=== PATIENT | male | born 1975 | race Caucasian/White ===

== ENCOUNTER 2018-05-29 16:48 | Observation (INO) ==
[2018-05-29] MEDS ORDERED: Ampicillin/Sulbactam Inj 3 GM in Sodium Chloride 0.9% Inj 100 ML IV.SIG ONE (17:00)
[2018-05-29] MEDS ORDERED: Morphine Inj 4 MG/ML Vial IV.PUSH ONE (17:00)
[2018-05-29] MEDS ORDERED: Sod Chloride 0.9% Inj 1,000 ML IV.SIG ONE (17:00)
[2018-05-29] MEDS ORDERED: Ketorolac Inj 30 MG/ML (IVP) Vial IV.PUSH ONE (17:00)
--- NOTE | 2018-05-29 17:07 | ED ---
HPI General Chief complaint: Skin/Abscess/Foreign Body Stated complaint: Infection around Rectum Time Seen by Provider: 05/29/18 16:53 Source: patient Mode of arrival: ambulatory Limitations: no limitations History of Present Illness HPI narrative: The patient is a 43-year-old male who presents emergency department for a perirectal abscess that is draining. The patient's symptoms started approximately 4 days ago. The patient complained of pain in the right perirectal area was seen in the emergency department yesterday. The patient states he was diagnosed with a right perirectal abscess and was placed on antibiotics, Augmentin and Bactrim, was advised to follow-up with a colorectal surgeon. The patient called his primary physician earlier today to inquire about a referral, however, he has was unable to see his surgeon. The patient states the symptoms are progressing, he has increasing pain, now has drainage from the abscess. The patient also notes subjective fevers with intermittent chills. The patient does have a history of IBS but denies any history of Crohn's disease or ulcerative colitis. The patient has had a colonoscopy in the last year, had several polyps which were removed, noncancerous. The patient denies currently taking any immunosuppressive medications. He denies any history of diabetes. Symptoms are moderate. The patient is already taking Augmentin, Bactrim, and hydrocodone for pain. MD complaint: abscess/boil Onset (ago): day(s) Location: buttocks Severity: moderate Severity scale (1-10): 7 Quality: sharp and constant Pain Consistency: constant Relieving factors: none Exacerbating factors: none Context: other Associated symptoms: fever Treatments prior to arrival: antibiotic Related Data Home Medications Medication Instructions Recorded Confirmed lisinopril 20 mg PO DAILY 05/28/18 05/29/18 ranitidine HCl [Zantac] 150 mg PO BID 05/28/18 05/29/18 Previous Rx's Medication Instructions Recorded amoxicillin-pot clavulanate 1 tab PO BID #20 tab 05/28/18 [Augmentin] hydrocodone-acetaminophen [Calumet] 1 tab PO Q6H PRN #12 tab 05/28/18 sulfamethoxazole-trimethoprim 1 tab PO BID 7 Days #14 tab 05/28/18 [Bactrim DS] Allergies Allergy/AdvReac Type Severity Reaction Status Date / Time No Known Allergies Allergy Verified 05/29/18 17:04 Review of Systems Except as stated in HPI: all other systems reviewed are negative [facility] Medical History Medical History GERD (gastroesophageal reflux disease) (Acute) Hypertension (Acute) Surgical History Surgical History History of ankle joint replacement (Acute) Social History Social History Substance History: No History of Abuse Second Hand Smoke Exposure: Yes Smoking Status: Current every day smoker Tobacco Type: Cigarettes How Often Do You Have a Drink Containing Alcohol: 2 to 4 times a month Recent Travel in [facility] within the Last 8 Weeks: No Recent Out of Country Travel within the Last 8 Weeks: No Exam Narrative Exam Narrative: GENERAL: Awake, alert, pleasant 43-year-old male who appears his stated age and is in no acute respiratory distress. SKIN: Focused skin assessment warm/dry. HEAD: Atraumatic. Normocephalic. EYES: No injection or drainage. NECK: Trachea midline. No JVD. CARDIOVASCULAR: Regular rate and rhythm. No murmur appreciated. RESPIRATORY: No accessory muscle use. Clear to auscultation. Breath sounds equal bilaterally. GASTROINTESTINAL: Abdomen soft, non-tender, nondistended. Rectal: Patient has a draining abscess with mild induration and tenderness at the 9 o'clock position. Rectal exam was performed, no obvious palpable abscess on digital rectal exam. MUSCULOSKELETAL: No obvious deformities. No clubbing. No cyanosis. No edema. NEUROLOGICAL: Awake and alert. No obvious cranial nerve deficits. Motor grossly within normal limits. Normal speech. PSYCHIATRIC: Appropriate mood and affect; insight and judgment normal. Course Reevaluation(s) Reevaluation #1: The on-call general surgeon, as there was no colorectal surgeon , was paged at 7:18 PM. Time: 19:18 Initial Documented Vital Signs Temperature 99.4 F 05/29/18 17:01 Pulse Rate 102 H 05/29/18 17:01 Respiratory Rate 18 05/29/18 17:01 Blood Pressure 154/83 H 05/29/18 17:01 Pulse Oximetry 97 05/29/18 17:01 Last Documented Vital Signs Temperature 99.4 F 05/29/18 17:01 Pulse Rate 102 H 05/29/18 17:01 Respiratory Rate 18 05/29/18 17:01 Blood Pressure 154/83 H 05/29/18 17:01 Pulse Oximetry 98 05/29/18 17:07 Medical Decision Making MDM Narrative Medical decision making narrative: IV was established, labs are drawn and sent, and the patient was placed on cardiac telemetry monitoring and continuous pulse oximetry monitoring. The patient was administer morphine, Toradol, Zofran, and IV fluids. CBC, lactic acid, blood culture were sent to lab. CT of the pelvis with IV contrast was ordered to evaluate the depth and extent of the abscess. CBC reveals a white count of 14.9. Creatinine is mildly elevated at 1.40. Lactic acid is normal. CT of the pelvis with IV contrast reveals a perirectal abscess that measured 2.2 cm with surrounding cellulitis. The patient was already on Augmentin and Bactrim, has been placed on Unasyn. The patient will be admitted to the medical service. A call was placed to the on-call general surgeon as there was no colorectal surgeon as he may benefit from evaluation tomorrow if symptoms do not improve. I discussed the patient with Dr. Mulligan, the patient will be a 23 hour observation to the medical service. If the patient does not need any more debridement or opening, the patient may just need IV antibiotic's overnight and discharged tomorrow. I discussed this with the patient and his girlfriend at bedside who are comfortable with this plan of care. Differential Diagnosis Differential Diagnosis: Differential diagnosis includes perirectal abscess, fistula, ischial rectal abscess, sepsis, cellulitis, bacteremia, septicemia. Lab Data Lab results reviewed: Yes I reviewed the patient's lab results. Lab results narrative: White count is elevated at 14.9, lactic acid is normal. Creatinine is mildly elevated at 1.40. Result diagrams: 05/29/18 17:20 05/29/18 17:20 Lab Results 05/29/18 05/29/18 05/29/18 Range/Units 17:20 17:20 17:20 CBC w Diff Auto diff final WBC 14.9 H (4.0-11.0) th/mm3 RBC 4.24 L (4.50-5.90) mil/mm3 Hgb 14.3 (13.0-17.0) gm/dL Hct 41.2 (39.0-51.0) % MCV 97.1 (80.0-100.0) fL MCH 33.7 (27.0-34.0) pg MCHC 34.7 (32.0-36.0) % RDW 12.2 (11.6-17.2) % Plt Count 179 (150-450) th/mm3 MPV 8.4 (7.0-11.0) fL Neut % (Auto) 85.0 H (16.0-70.0) % Lymph % (Auto) 6.9 L (9.0-44.0) % [place] % (Auto) 7.3 (0.0-8.0) % Eos % (Auto) 0.8 (0.0-4.0) % Baso % (Auto) 0.0 (0.0-2.0) % Neut # (Auto) 12.7 H (1.8-7.7) th/mm3 Lymph # (Auto) 1.0 (1.0-4.8) th/mm3 [place] # (Auto) 1.1 H (0.0-0.9) th/mm3 Eos # (Auto) 0.1 (0.0-0.4) th/mm3 Baso # (Auto) 0.0 (0.0-0.2) th/mm3 WBC Differential . Differential Comment . Sodium 136 (136-145) meq/L Potassium 3.3 L (3.5-5.1) meq/L Chloride 103 (98-107) meq/L Carbon Dioxide 27.7 (21.0-32.0) meq/L Anion Gap 5 (5-15) meq/L BUN 12 (7-18) mg/dL Creatinine 1.40 H (0.60-1.30) mg/dL Estimated GFR 56 L (>89) mL/min Random Glucose 86 (74-106) mg/dL Lactic Acid 0.8 (0.4-2.0) mmol/L Calcium 8.9 (8.5-10.1) mg/dL Total Bilirubin 0.7 (0.2-1.0) mg/dL AST 30 (15-37) U/L ALT 65 (12-78) U/L Alkaline Phosphatase 97 (45-117) U/L Total Protein 7.3 (6.4-8.2) g/dL Albumin 3.1 L (3.4-5.0) g/dL Lipase 98 (73-393) U/L Imaging Data Radiologist's impression: Pelvis CT 05/29/18 17:00 CONCLUSION: 1. Cellulitis in the perirectal and perianal region with a suspected small 2.2 cm abscess on the right side. Discharge Plan Discharge Disposition Patient Disposition: 30 Still Patient Discharge Condition Condition: Stable Discharge Details Diagnosis: Miriam-rectal abscess Physicians Team ED Provider: Mitul Diehl Primary Care Provider: Primary Care Hanane Lane Rxs /Orders / Referrals /Forms Prescriptions: No Action lisinopril 20 mg Tablet 20 mg PO DAILY RF: 0 ranitidine HCl [Zantac] 150 mg Tablet 150 mg PO BID RF: 0 hydrocodone-acetaminophen [Calumet] 5-325 mg tablet 1 tab PO Q6H PRN (Reason: pain) Qty: 12 RF: 0 sulfamethoxazole-trimethoprim [Bactrim DS] 800-160 mg tablet 1 tab PO BID 7 Days Qty: 14 RF: 0 amoxicillin-pot clavulanate [Augmentin] 875-125 mg tablet 1 tab PO BID Qty: 20 RF: 0 Status ED Status: Pending Admission
[2018-05-29 17:31] LABS: Eos # (Auto) 0.1 th/mm3 (0.0-0.4); Eos % (Auto) 0.8 % (0.0-4.0); Hematocrit 41.2 % (39.0-51.0); Hemoglobin 14.3 gm/dL (13.0-17.0); Lymph % (Auto) 6.9 % (9.0-44.0); Mean Corpuscular HGB Conc 34.7 % (32.0-36.0); Mean Corpuscular Hemoglobin 33.7 pg (27.0-34.0); Mean Corpuscular Volume 97.1 fL (80.0-100.0); Mean Platelet Volume 8.4 fL (7.0-11.0); Mono # (Auto) 1.1 th/mm3 (0.0-0.9); Mono % (Auto) 7.3 % (0.0-8.0); Neut # (Auto) 12.7 th/mm3 (1.8-7.7); Platelet Count 179 th/mm3 (150-450); Red Blood Count 4.24 mil/mm3 (4.50-5.90); Red Cell Distribution Width 12.2 % (11.6-17.2); White Blood Count 14.9 th/mm3 (4.0-11.0)
[2018-05-29 17:37] LABS: Chloride 103 meq/L (98-107); Potassium 3.3 meq/L (3.5-5.1); Sodium 136 meq/L (136-145)
[2018-05-29 17:40] LABS: Calcium 8.9 mg/dL (8.5-10.1)
[2018-05-29 17:41] LABS: Albumin 3.1 g/dL (3.4-5.0); Anion Gap 5 meq/L (5-15); Blood Urea Nitrogen 12 mg/dL (7-18); Carbon Dioxide 27.7 meq/L (21.0-32.0); Glucose,Random 86 mg/dL (74-106); Lipase 98 U/L (73-393)
[2018-05-29 17:44] LABS: Alanine Aminotransferase 65 U/L (12-78); Aspartate Aminotransferase 30 U/L (15-37); Glomerular Filtration Rate 56 mL/min (>89)
[2018-05-29 17:45] LABS: Total Protein 7.3 g/dL (6.4-8.2)
[2018-05-29 17:47] LABS: Alkaline Phosphatase 97 U/L (45-117)
--- NOTE | 2018-05-29 19:08 | CT ---
EXAM DATE: 05/29/2018 6:33 PM EDT AGE/SEX: 43 years / Male INDICATIONS: Perirectal abscess. Evaluate for abscess extension, superficial vs deep. CLINICAL DATA: This is the patient's initial encounter. Patient reports that signs and symptoms have been present for 4 - 6 days and indicates a pain score of 10/10. MEDICAL/SURGICAL HISTORY: Gastroesophageal reflux disease. Hypertension. None. RADIATION DOSE: 16.51 CTDI (mGy) COMPARISON: No prior exams available for comparison. TECHNIQUE: Multiple contiguous helical axial images were obtained through pelvis following bolus inf usion of 90 ml Omnipaque 350 (iohexol) nonionic water-soluble contrast as a single exam dose. Imag es were obtained using multiple row detector helical technique. . Using automated exposure control an d adjustment of the mA and/or kV according to patient size, radiation dose was kept as low as reasona gabby achievable to obtain optimal diagnostic quality images. DICOM format image data is available sade ctronically for review and comparison. FINDINGS: There is thickening of the soft tissues in the perirectal and perianal region with a suspected perire ctal abscess measuring up to about 2.2 cm in diameter. Within the pelvis there is no mass or fluid. No adenopathy. No acute bony abnormalities. CONCLUSION: 1. Cellulitis in the perirectal and perianal region with a suspected small 2.2 cm abscess on the rig ht side. Electronically signed by: Des Andersen MD 05/29/2018 7:06 PM EDT
[2018-05-29] MEDS ORDERED: Acetaminophen 325 MG Tablet PO PRN (19:49)
[2018-05-29] MEDS ORDERED: Temazepam 15 MG Capsule PO PRN (19:49)
[2018-05-29] MEDS ORDERED: Bisacodyl 10 MG Supp RECTAL PRN (19:49)
[2018-05-29] MEDS ORDERED: Vancomycin Consult Pharmacy 1 EACH OTHER SCH (20:00)
[2018-05-29] MEDS: Sod Chloride 0.9% Inj 1,000 ML IV.CONT SCH (20:12)
[2018-05-29] MEDS ORDERED: Vancomycin Inj 1,300 MG in Sodium Chlor 0.9% Inj 500 ML IV.SIG SCH (21:00)
[2018-05-29] MEDS: Senna/Docusate Sodium 8.6/50 MG Tablet PO SCH (23:40)
[2018-05-29] MEDS: Ampicillin/Sulbactam Inj 3 GM in Sodium Chloride 0.9% Inj 100 ML IV.SIG SCH (23:41)
[2018-05-30] MEDS: Morphine Inj 4 MG/ML Vial IV.PUSH PRN ×2 (05:45→10:09)
[2018-05-30] MEDS: Ampicillin/Sulbactam Inj 3 GM in Sodium Chloride 0.9% Inj 100 ML IV.SIG SCH (05:46)
[2018-05-30] MEDS: Sod Chloride 0.9% Inj 1,000 ML IV.CONT SCH (05:48)
[2018-05-30] MEDS: Senna/Docusate Sodium 8.6/50 MG Tablet PO SCH (08:08)
[2018-05-30 08:11] LABS: Baso % (Auto) 0.2 % (0.0-2.0); Eos # (Auto) 0.2 th/mm3 (0.0-0.4); Eos % (Auto) 2.2 % (0.0-4.0); Hemoglobin 12.7 gm/dL (13.0-17.0); Lymph # (Auto) 1.2 th/mm3 (1.0-4.8); Lymph % (Auto) 13.4 % (9.0-44.0); Mean Corpuscular HGB Conc 35.3 % (32.0-36.0); Mean Corpuscular Hemoglobin 34.5 pg (27.0-34.0); Mean Corpuscular Volume 97.8 fL (80.0-100.0); Mean Platelet Volume 8.9 fL (7.0-11.0); Mono # (Auto) 0.8 th/mm3 (0.0-0.9); Mono % (Auto) 8.2 % (0.0-8.0); Platelet Count 169 th/mm3 (150-450); Red Blood Count 3.68 mil/mm3 (4.50-5.90); Red Cell Distribution Width 12.5 % (11.6-17.2); White Blood Count 9.2 th/mm3 (4.0-11.0)
[2018-05-30 08:20] LABS: Chloride 110 meq/L (98-107); Sodium 143 meq/L (136-145)
[2018-05-30 08:39] LABS: Alanine Aminotransferase 62 U/L (12-78); Albumin 2.4 g/dL (3.4-5.0); Alkaline Phosphatase 84 U/L (45-117); Anion Gap 5 meq/L (5-15); Aspartate Aminotransferase 41 U/L (15-37); Blood Urea Nitrogen 11 mg/dL (7-18); Calcium 7.8 mg/dL (8.5-10.1); Carbon Dioxide 27.9 meq/L (21.0-32.0); Glomerular Filtration Rate 74 mL/min (>89); Glucose,Random 98 mg/dL (74-106); Total Protein 5.9 g/dL (6.4-8.2)
--- NOTE | 2018-05-30 11:22 | P.CONGS ---
[facility] Gen Surgery Consult Note Consult date: 05/30/18 Narrative: Mr. Acuna is a 43 yo M who developed perirectal pain 6 days ago. He presented to the ED a few days ago and was place on PO antibiotics. He attempted to contact a surgeon but was unable to get in Friday on such short notice. He again presented to the ED yesterday as the pain persisted and he also began to have drainage from the area. WBC was noted to be 14,[address] pelvis showed a small fluid collection and inflammation. Review of Systems All other systems reviewed negative except as stated in [facility] - History History Provided By: Patient - Medical History Medical History: Medical History (Last Updated 05/28/18 @ 11:48 by Lindsey Ott RN) GERD (gastroesophageal reflux disease) Hypertension - Surgical History Surgical History: Surgical History (Last Updated 05/28/18 @ 11:48 by Lindsey Ott, FELIX) History of ankle joint replacement - Tobacco History Second Hand Smoke Exposure: Yes Tobacco Use In Past 30 Days: Yes Smoking Status: Current every day smoker Tobacco Type: Cigarettes - Alcohol History How Often Do You Have a Drink Containing Alcohol: 2 to 3 times a week - Substance Use History Substance History: No History of Abuse - Travel History Recent Travel in the [place] Within the Last 8 Weeks: No Recent Travel Out of the Country Within the Last 8 Weeks: No - Immunization History Tetanus Immunization: <5 Years Hx Influenza Vaccine This Season: No Medications and Allergies Active Medications: Active Medications Acetaminophen (Tylenol) 650 mg PO Q4H PRN PRN Reason: Temp > 100.4 Hydrocodone Bitart/Acetaminophen ([place] 5/325) 1 tab PO Q4H PRN PRN Reason: PAIN 3-5 Last Admin: 05/29/18 20:11 Dose: 1 tab Al Hydroxide/Mg Hydroxide (Milk Of Cecilia Liq) 30 ml PO Q12H PRN PRN Reason: Mild Constipation Bisacodyl (Dulcolax Supp) 10 mg RECTAL DAILY PRN PRN Reason: SEVERE CONSITIPATION Ampicillin Sodium/Sulbactam (Sodium 3 gm/ Sodium Chloride) 100 mls @ 200 mls/ hr IV.SIG Q6H [facility] Last Infusion: 05/30/18 06:32 Dose: Infused Sodium Chloride (Ns Inj) 1,000 mls @ 100 mls/hr IV.CONT .Q10H [facility] Last Admin: 05/30/18 05:48 Dose: 100 mls/hr Pharmacy Profile Note (Vancomycin Consult Pharmacy) 0 mls @ 0 mls/hr OTHER UNSCH [facility] Vancomycin HCl 1,300 mg/ (Sodium Chloride) 513 mls @ 250 mls/hr IV.SIG Q18H [facility] Last Infusion: 05/29/18 23:49 Dose: Infused Lactulose (Lactulose Liq) 30 ml PO DAILY PRN PRN Reason: SEVERE CONSITIPATION Miscellaneous Information ([facility] Ordered Lab Info) 0 each OTHER ONCE ONE Stop: 06/01/18 02:46 Morphine Sulfate (Morphine Inj) 2 mg IV.PUSH Q4H PRN PRN Reason: PAIN 6-10 Last Admin: 05/30/18 10:09 Dose: 2 mg Ondansetron HCl (Zofran Inj) 4 mg IV.PUSH Q6H PRN PRN Reason: NAUSEA OR VOMITING Senna/Docusate Sodium (Miriam-Colace) 1 tab PO BID [facility] Last Admin: 05/30/18 08:08 Dose: Not Given Sennosides (Senokot) 17.2 mg PO Q12H PRN PRN Reason: Moderate Constipation Sodium Chloride (Ns Flush) 2 ml IV.FLUSH PRN PRN PRN Reason: FLUSH AFTER USING IV ACCESS Temazepam (Restoril) 15 mg PO HS PRN PRN Reason: INSOMNIA Last Admin: 05/30/18 00:36 Dose: 15 mg Allergies Allergy/AdvReac Type Severity Reaction Status Date / Time No Known Allergies Allergy Verified 05/29/18 17:04 Home Medications Medication Instructions Recorded Confirmed Type lisinopril 20 mg PO DAILY 05/28/18 05/29/18 History ranitidine HCl [Zantac] 150 mg PO BID 05/28/18 05/29/18 History Exam Vital signs: Vital Signs 05/29/18 17:01 05/29/18 17:07 05/29/18 20:18 Temperature 99.4 F 98.8 F Pulse Rate 102 H 95 H Respiratory Rate 18 18 Blood Pressure 154/83 H 103/52 L Pulse Oximetry 97 98 05/29/18 21:56 05/30/18 00:00 05/30/18 07:29 Temperature 98.4 F 99.2 F Pulse Rate 89 93 H 89 Respiratory Rate 20 16 20 Blood Pressure 130/79 125/82 117/70 Pulse Oximetry 96 92 L 05/30/18 10:38 05/30/18 11:08 Temperature 98.7 F Pulse Rate 75 Respiratory Rate 17 20 Blood Pressure 130/74 Pulse Oximetry 97 Intake & Output 05/29/18 05/30/18 05/30/18 18:59 06:59 18:59 Intake Total 2716 / 2716 Balance 271 / 2716 Weight 86.2 kg 86.9 kg Intake: IV 2715 / 2716 NS Inj 1,000 ML @ 100 mls/hr IV 903 / 903 .CONT .Q10H [facility] Rx#:[id number] Unasyn Inj 3 GM In NS Inj 100 300 / 300 ML @ 200 mls/hr IV.SIG Q6H [facility] Rx#:[id number] NS Inj 1,000 ML @ Wide Open IV. 1000 / 1000 SIG BOLUS ONE Rx#:[id number] Vancomycin Inj 1,300 MG In NS 513 / 513 Inj 500 ML @ 250 mls/hr IV.SIG Q18H [facility] Rx#:[id number] Other: # Voids 3 Date of Last Bowel Movement 05/30/18 # Bowel Movements 1 Weight On Admission 86.9 kg Narrative: GENERAL: Awake and alert. No acute distress. Cooperative. HEAD: Normocephalic. Atraumatic. EYES: Pupils equal round and reactive to light bilaterally. No scleral icterus. ENT: Moist oral mucosa. NECK: Trachea midline. CHEST: Lungs clear to auscultation bilaterally with no wheezing or rhonchi. No respiratory distress. CARDIOVASCULAR: Regular rate and rhythm. Rectal: Right perianal area with 3x3 cm area induration and purulent drainage. No erythema. Moderately tender. EXTREMITIES: No cyanosis or edema. SKIN: Warm, dry, nonjaundiced. Results - Labs 05/30/18 07:12 05/30/18 07:12 Abnormal lab results 05/29/18 05/29/18 05/30/18 Range/Units 17:20 17:20 07:12 WBC 14.9 H (4.0-11.0) th/mm3 RBC 4.24 L 3.68 L (4.50-5.90) mil/mm3 Hgb 12.7 L (13.0-17.0) gm/dL Hct 36.0 L (39.0-51.0) % MCH 34.5 H (27.0-34.0) pg Neut % (Auto) 85.0 H 76.0 H (16.0-70.0) % Lymph % (Auto) 6.9 L (9.0-44.0) % [place] % (Auto) 8.2 H (0.0-8.0) % Neut # (Auto) 12.7 H (1.8-7.7) th/mm3 [place] # (Auto) 1.1 H (0.0-0.9) th/mm3 Potassium 3.3 L (3.5-5.1) meq/L Chloride (98-107) meq/L Creatinine 1.40 H (0.60-1.30) mg/dL Estimated GFR 56 L (>89) mL/min Calcium (8.5-10.1) mg/dL AST (15-37) U/L Total Protein (6.4-8.2) g/dL Albumin 3.1 L (3.4-5.0) g/dL 05/30/18 Range/Units 07:12 WBC (4.0-11.0) th/mm3 RBC (4.50-5.90) mil/mm3 Hgb (13.0-17.0) gm/dL Hct (39.0-51.0) % MCH (27.0-34.0) pg Neut % (Auto) (16.0-70.0) % Lymph % (Auto) (9.0-44.0) % [place] % (Auto) (0.0-8.0) % Neut # (Auto) (1.8-7.7) th/mm3 [place] # (Auto) (0.0-0.9) th/mm3 Potassium (3.5-5.1) meq/L Chloride 110 H (98-107) meq/L Creatinine (0.60-1.30) mg/dL Estimated GFR 74 L (>89) mL/min Calcium 7.8 L D (8.5-10.1) mg/dL AST 41 H (15-37) U/L Total Protein 5.9 L D (6.4-8.2) g/dL Albumin 2.4 L D (3.4-5.0) g/dL Diabetes panel 05/29/18 05/30/18 Range/Units 17:20 07:12 Sodium 136 143 (136-145) meq/L Potassium 3.3 L 4.0 (3.5-5.1) meq/L Chloride 103 110 H (98-107) meq/L Carbon Dioxide 27.7 27.9 (21.0-32.0) meq/L BUN 12 11 (7-18) mg/dL Creatinine 1.40 H 1.10 (0.60-1.30) mg/dL Calcium 8.9 7.8 L D (8.5-10.1) mg/dL AST 30 41 H (15-37) U/L ALT 65 62 (12-78) U/L Alkaline Phosphatase 97 84 (45-117) U/L Total Protein 7.3 5.9 L D (6.4-8.2) g/dL Albumin 3.1 L 2.4 L D (3.4-5.0) g/dL Calcium panel 05/29/18 05/30/18 Range/Units 17:20 07:12 Calcium 8.9 7.8 L D (8.5-10.1) mg/dL Albumin 3.1 L 2.4 L D (3.4-5.0) g/dL Pituitary panel 05/29/18 05/30/18 Range/Units 17:20 07:12 Sodium 136 143 (136-145) meq/L Potassium 3.3 L 4.0 (3.5-5.1) meq/L Chloride 103 110 H (98-107) meq/L Carbon Dioxide 27.7 27.9 (21.0-32.0) meq/L BUN 12 11 (7-18) mg/dL Creatinine 1.40 H 1.10 (0.60-1.30) mg/dL Calcium 8.9 7.8 L D (8.5-10.1) mg/dL Adrenal panel 05/29/18 05/30/18 Range/Units 17:20 07:12 Sodium 136 143 (136-145) meq/L Potassium 3.3 L 4.0 (3.5-5.1) meq/L Chloride 103 110 H (98-107) meq/L Carbon Dioxide 27.7 27.9 (21.0-32.0) meq/L BUN 12 11 (7-18) mg/dL Creatinine 1.40 H 1.10 (0.60-1.30) mg/dL Calcium 8.9 7.8 L D (8.5-10.1) mg/dL Total Bilirubin 0.7 0.6 (0.2-1.0) mg/dL AST 30 41 H (15-37) U/L ALT 65 62 (12-78) U/L Alkaline Phosphatase 97 84 (45-117) U/L Total Protein 7.3 5.9 L D (6.4-8.2) g/dL Albumin 3.1 L 2.4 L D (3.4-5.0) g/dL All other labs normal. - Imaging CT scan - pelvis: report reviewed, image reviewed Assessment and Plan - Assessment (1) Miriam-rectal abscess Code(s): K61.1 - Rectal abscess Status: Acute - Plan Small perirectal abscess which is draining. His pain is improving. After discussion with him recommend d/c home on PO antibiotics with f/u in my office on Friday. Twice daily sitz baths until that time.
--- NOTE | 2018-05-30 11:23 | P.HPIM ---
History of Present Illness [facility]: [facility] Primary Care Physician: No Primary Care Physician Chief Complaint: Perirectal abscess. Seen in the ED 2 days ago History of Present Illness: 43-year-old male with a medical history significant for hypertension, GERD, who initially presented to the emergency room 2 days ago for perirectal abscess. The patient was discharged on Augmentin and Bactrim. He reports the lesion has gotten bigger and started to drain earlier this morning causing him severe pain which brought him back to the emergency room. He states he attempted to get in with a surgeon but was not able to. He denies any fevers or chills. - Diagnosis (1) Diabetes (2) Miriam-rectal abscess Review of Systems All other systems reviewed negative except as stated in HPI PMFSH - History History Provided By: Patient - Medical History Medical History: Medical History (Last Reviewed 05/30/18 @ 16:34 by Dayron Wesley MD) GERD (gastroesophageal reflux disease) Hypertension - Surgical History Surgical History: Surgical History (Last Reviewed 05/30/18 @ 16:34 by Dayron Wesley MD) History of ankle joint replacement - Family History Family History: Family History (Last Updated 05/30/18 @ 16:35 by Dayron Wesley MD) Other Family history non-contributory - Tobacco History Second Hand Smoke Exposure: Yes Tobacco Use In Past 30 Days: Yes Smoking Status: Current every day smoker Tobacco Type: Cigarettes - Alcohol History How Often Do You Have a Drink Containing Alcohol: 2 to 3 times a week - Substance Use History Substance History: No History of Abuse - Travel History Recent Travel in the [place] Within the Last 8 Weeks: No Recent Travel Out of the Country Within the Last 8 Weeks: No - Immunization History Tetanus Immunization: <5 Years Hx Influenza Vaccine This Season: No Medications and Allergies Active Medications: Active Medications Acetaminophen (Tylenol) 650 mg PO Q4H PRN PRN Reason: Temp > 100.4 Hydrocodone Bitart/Acetaminophen ([place] 5/325) 1 tab PO Q4H PRN PRN Reason: PAIN 3-5 Last Admin: 05/29/18 20:11 Dose: 1 tab Al Hydroxide/Mg Hydroxide (Milk Of Magnesia Liq) 30 ml PO Q12H PRN PRN Reason: Mild Constipation Bisacodyl (Dulcolax Supp) 10 mg RECTAL DAILY PRN PRN Reason: SEVERE CONSITIPATION Ampicillin Sodium/Sulbactam (Sodium 3 gm/ Sodium Chloride) 100 mls @ 200 mls/ hr IV.SIG Q6H [facility] Last Infusion: 05/30/18 06:32 Dose: Infused Sodium Chloride (Ns Inj) 1,000 mls @ 100 mls/hr IV.CONT .Q10H [facility] Last Admin: 05/30/18 05:48 Dose: 100 mls/hr Pharmacy Profile Note (Vancomycin Consult Pharmacy) 0 mls @ 0 mls/hr OTHER UNSCH [facility] Vancomycin HCl 1,300 mg/ (Sodium Chloride) 513 mls @ 250 mls/hr IV.SIG Q18H [facility] Last Infusion: 05/29/18 23:49 Dose: Infused Lactulose (Lactulose Liq) 30 ml PO DAILY PRN PRN Reason: SEVERE CONSITIPATION Miscellaneous Information ([facility] Ordered Lab Info) 0 each OTHER ONCE ONE Stop: 06/01/18 02:46 Morphine Sulfate (Morphine Inj) 2 mg IV.PUSH Q4H PRN PRN Reason: PAIN 6-10 Last Admin: 05/30/18 10:09 Dose: 2 mg Ondansetron HCl (Zofran Inj) 4 mg IV.PUSH Q6H PRN PRN Reason: NAUSEA OR VOMITING Senna/Docusate Sodium (Miriam-Colace) 1 tab PO BID [facility] Last Admin: 05/30/18 08:08 Dose: Not Given Sennosides (Senokot) 17.2 mg PO Q12H PRN PRN Reason: Moderate Constipation Sodium Chloride (Ns Flush) 2 ml IV.FLUSH PRN PRN PRN Reason: FLUSH AFTER USING IV ACCESS Temazepam (Restoril) 15 mg PO HS PRN PRN Reason: INSOMNIA Last Admin: 05/30/18 00:36 Dose: 15 mg Allergies Allergy/AdvReac Type Severity Reaction Status Date / Time No Known Allergies Allergy Verified 05/29/18 17:04 Home Medications Medication Instructions Recorded Confirmed Type lisinopril 20 mg PO DAILY 05/28/18 05/29/18 History ranitidine HCl [Zantac] 150 mg PO BID 05/28/18 05/29/18 History Exam Vital signs: Vital Signs 05/29/18 17:01 05/29/18 17:07 08/03/18 20:18 Temperature 99.4 F 98.8 F Pulse Rate 102 H 95 H Respiratory Rate 18 18 Blood Pressure 154/83 H 103/52 L Pulse Oximetry 97 98 05/29/18 21:56 05/30/18 00:00 05/30/18 07:29 Temperature 98.4 F 99.2 F Pulse Rate 89 93 H 89 Respiratory Rate 20 16 20 Blood Pressure 130/79 125/82 117/70 Pulse Oximetry 96 92 L 05/30/18 10:38 05/30/18 11:08 Temperature 98.7 F Pulse Rate 75 Respiratory Rate 17 20 Blood Pressure 130/74 Pulse Oximetry 97 Intake & Output 05/29/18 05/30/18 05/30/18 18:59 06:59 18:59 Intake Total 2716 / 2716 Balance 2716 / 2716 Weight 86.2 kg 86.9 kg Intake: IV 2715 / 2716 NS Inj 1,000 ML @ 100 mls/hr IV 903 / 903 .CONT .Q10H [facility] Rx#:[id number] Unasyn Inj 3 GM In NS Inj 100 300 / 300 ML @ 200 mls/hr IV.SIG Q6H [facility] Rx#:[id number] NS Inj 1,000 ML @ Wide Open IV. 1000 / 1000 SIG BOLUS ONE Rx#:[id number] Vancomycin Inj 1,300 MG In NS 513 / 513 Inj 500 ML @ 250 mls/hr IV.SIG Q18H [facility] Rx#:[id number] Other: # Voids 3 Date of Last Bowel Movement 05/30/18 # Bowel Movements 1 Weight On Admission 86.9 kg Narrative: GENERAL: This is a well-nourished, well-developed patient, in no apparent distress. CARDIOVASCULAR: Normal rate and regular rhythm without murmurs, gallops, or rubs. RESPIRATORY: Good respiratory efforts. Breath sounds equal and clear to auscultation bilaterally. GASTROINTESTINAL: Abdomen soft, non-tender, non-distended. Normal active bowel sounds MUSCULOSKELETAL: Extremities without cyanosis, or edema. SKIN: On the right perirectal area, the patient has a 2 cm area with some surrounding induration. There is purulent drainage. Some tenderness to palpation. NEURO: Alert & Oriented x4 to person, place, time, situation. Moves all ext x4 PSYCH: Appropriate mood and affect. Results - Labs CBC & Chem 7: 05/30/18 07:12 05/30/18 07:12 Labs: Short CBC 05/29/18 05/30/18 Range/Units 17:20 07:12 WBC 14.9 H 9.2 (4.0-11.0) th/mm3 Hgb 14.3 12.7 L (13.0-17.0) gm/dL Hct 41.2 36.0 L (39.0-51.0) % Plt Count 179 169 (150-450) th/mm3 BMP 05/29/18 05/30/18 17:20 07:12 Sodium 136 143 Potassium 3.3 L 4.0 Chloride 103 110 H Carbon Dioxide 27.7 27.9 BUN 12 11 Creatinine 1.40 H 1.10 Calcium 8.9 7.8 L D Liver Function 05/29/18 05/30/18 Range/Units 17:20 07:12 Total Bilirubin 0.7 0.6 (0.2-1.0) mg/dL AST 30 41 H (15-37) U/L ALT 65 62 (12-78) U/L Alkaline Phosphatase 97 84 (45-117) U/L Albumin 3.1 L 2.4 L D (3.4-5.0) g/dL - Imaging Impressions Pelvis CT 05/29/18 17:00 CONCLUSION: 1. Cellulitis in the perirectal and perianal region with a suspected small 2.2 cm abscess on the right side. Caprini VTE Risk Assessment Caprini VTE Risk Assessment: No/Low Risk (score <= 1) Caprini Risk Assessment Model: Point Value = 1 Point Value = 2 Point Value = 3 Point Value = 5 Age 41-60 Minor surgery BMI > 25 kg/m2 Swollen legs Varicose veins or History of unexplained or recurrent spontaneous Oral contraceptives or hormone replacement Sepsis (< 1 month) Serious lung disease, including pneumonia (< 1 month) Abnormal pulmonary function Acute myocardial infarction Congestive heart failure (< 1 month) History of inflammatory bowel disease Medical patient at bed rest Age 61-74 Arthroscopic surgery Major open surgery (> 45 min) Laparoscopic surgery (> 45 min) Malignancy Confined to bed (> 72 hours) Immobilizing plaster cast Central venous access Age >= 75 History of VTE Family history of VTE Factor V Leiden Prothrombin [id number] Lupus anticoagulant Anticardiolipin antibodies Elevated serum homocysteine Heparin-induced thrombocytopenia Other congenital or acquired thrombophilia Stroke (< 1 month) Elective arthroplasty Hip, pelvis, or leg fracture Acute spinal cord injury (< 1 month) Prophylaxis Regimen: Total Risk Factor Score Risk Level Prophylaxis Regimen 0-1 Low Early ambulation 2 Moderate Order ONE of the following: *Sequential Compression Device (SCD) *Heparin 5000 units SQ BID 3-4 Higher Order ONE of the following medications: *Heparin 5000 units SQ TID *Enoxaparin/Lovenox 40 mg SQ daily (WT < 150 kg, CrCl > 30 mL/min) *Enoxaparin/Lovenox 30 mg SQ daily (WT < 150 kg, CrCl > 10-29 mL/min) *Enoxaparin/Lovenox 30 mg SQ BID (WT < 150 kg, CrCl > 30 mL/min) AND/OR *Sequential Compression Device (SCD) 5 or more Highest Order ONE of the following medications: *Heparin 5000 units SQ TID (Preferred with Epidurals) *Enoxaparin/Lovenox 40 mg SQ daily (WT < 150 kg, CrCl > 30 mL/min) *Enoxaparin/Lovenox 30 mg SQ daily (WT < 150 kg, CrCl > 10-29 mL/min) *Enoxaparin/Lovenox 30 mg SQ BID (WT < 150 kg, CrCl > 30 mL/min) AND *Sequential Compression Device (SCD) Assessment and Plan - Assessment (1) Diabetes Code(s): E11.9 - Type 2 diabetes mellitus without complications Status: Acute (2) Miriam-rectal abscess Code(s): K61.1 - Rectal abscess Status: Acute - Plan 43-year-old male with a draining perirectal abscess. I discussed the case with general surgery Dr. Mulligan. The patient has been examined. The abscess is draining. He recommended continuing oral antibiotics at home. The patient and follow up with him in the clinic on Friday. Discussed plan of care with patient. All of his questions were answered. Discharge patient to home Condition on discharge: Improved Regular Diet as tolerated [employer] [place] activity Rx written: Augmentin. He is advised to finish the Bactrim he started. Follow-up with primary care physician H&P: Quality - VTE Deep Vein Thrombosis/Pulmonary Embolism Present on Admission: No
[2018-06-01] MEDS ORDERED: VANCOMYCIN TROUGH OTHER ONE (02:45)
[2018-06-02 18:23] VITALS: BP 130/74; PULSE 75; RESP 20; TEMP 98.7; O2SAT 97
== END 2018-05-30 12:57 | disposition home or self-care (01) ==
LOC: PH3 16:48 → PHEDA 16:48 → PHED 16:48 → PH3 21:34
PROVIDERS: ADMIT Family Medicine; ATTEND Family Medicine